=== PATIENT | female | born 1980 | race Caucasian/White ===

== ENCOUNTER 2021-11-02 01:46 | Emergency (ER) | payer BC, SELFPAY ==
[2021-11-02 02:02] VITALS: BP 130/85; PULSE 89; RESP 18; TEMP 36.6; BMI 24.1
--- NOTE | 2021-11-02 02:36 | ED.UPPEXIN ---
HPI - Extremity Injury (Upper) General Chief Complaint: Extremity Pain/Injury, Upper Stated Complaint: Right Shoulder Pain Time Seen by Provider: 11/02/21 02:16 Source: patient Mode of arrival: ambulatory Limitations: no limitations History of Present Illness HPI narrative: Patient presents with sudden onset of right shoulder pain radiating into the very anterior upper right chest approximately 1 hour ago. She has reported some mild vague shoulder discomfort for the last few months but no specific trauma nor injury. No weakness in the hands or arms, no neck pain. Her symptoms are not accompanied by any chest pain, cardiac symptoms, palpitations, exertional symptoms, dyspnea. There is no cough or fever or symptoms of illness. And states that the pain woke her from sleep. She did not try taking any Tylenol or ibuprofen. Pain is markedly worsened by attempting to move her shoulder and with deep breaths. No new activity, no new medications. No prior x-ray or investigation for this condition in the past. No prior physical therapy or prior primary care evaluation. Opposite shoulder and neck are unaffected. She has teenage children, no recent heavy lifting. Pain is sharp and piercing. Review of systems is negative for other musculoskeletal, cardiovascular, skin, respiratory or generalized complaints tonight. Related Data Previous Rx's Medication Instructions Recorded cyclobenzaprine 10 mg tablet 5 - 10 mg PO HS PRN muscle spasm 11/02/21 #10 tabs meloxicam 15 mg tablet 15 mg PO DAILY #20 tabs 11/02/21 PFSH PFSH Medical History Depression IUD (intrauterine device) in place Surgical History History of Exam Const: Vital Signs, click to edit/add: Vital Signs - 24 hr 11/02/21 02:02 Temperature 97.8 F Pulse Rate [Pulse Oximeter] 89 Respiratory Rate 18 Blood Pressure [Le ft Upper Arm] 130/85 Oxygen Delivery Me thod Room Air Documenting provider has reviewed patient's vital signs: yes Common normals: no apparent distress General appearance: cooperative Other: Excellent historian. HENMT: Common normals: normocephalic Head and scalp: normocephalic Eye: Common normals: conjunctivae normal and no scleral icterus Conjunctiva: conjunctiva(e) normal Other: Normal visual tracking Neck & C-Spine: Common normals: full ROM and no lymphadenopathy Chest: Common normals: inspection of chest normal and palpation of chest normal Resp: Common normals: normal respiratory effort, no use of accessory muscles and clear to auscultation bilaterally Auscultation: clear to auscultation bilaterally Cardio: Common normals: regular rate, regular rhythm, S1 normal heart sound, S2 normal heart sound, no murmurs and peripheral pulses 2+ throughout Rate: regular rate Rhythm: regular rhythm Heart sounds: S1 normal and S2 normal Peripheral pulses: pulses 2+ throughout Extremity: Other: Left shoulder with normal range of motion. Normal strength in left hand. No tenderness to left upper extremity, no movement deficits. Right shoulder is initially guarded at her side rotated internally slightly. She has normal range of motion at the wrist with no effusion, normal hand strength and movement of the fingers. The elbow extends without difficulty. She does have normal abduction and adduction of the arm. She has difficulty controlling the arm in adduction from about 30-0 degrees. She has marked tenderness to impingement testing normal passive range of motion without eliciting tenderness. Mild tenderness to palpation of the supraspinatus and AC joint no effusion, deformity. Neuro: Motor exam: no tremor noted and no movement abnormalities noted Psych: Common normals: speech normal Speech: normal speech Mood and affect: euthymic mood Insight: insight good Judgement: judgment good Skin: Common normals: no rashes or lesions noted General skin exam: no rashes or lesions noted Course Vital Signs Vital signs: Initial Vital Signs Temperature 97.8 F 11/02/21 02:02 Temperature Source Temporal Artery Scan 11/02/21 02:02 Pulse Rate 89 11/02/21 02:02 Respiratory Rate 18 11/02/21 02:02 Blood Pressure 130/85 11/02/21 02:02 Blood Pressure Mean 100 11/02/21 02:02 Blood Pressure Position Sitting 11/02/21 02:02 Oxygen Delivery Method 11/02/21 02:02 Vital Signs Temperature 97.8 F 11/02/21 02:02 Pulse Rate 89 11/02/21 02:02 Respiratory Rate 18 11/02/21 02:02 Blood Pressure 130/85 11/02/21 02:02 Oxygen Delivery Method 11/02/21 02:02 Temperature 97.8 F 11/02/21 02:02 Pulse Rate 89 11/02/21 02:02 Respiratory Rate 18 11/02/21 02:02 Blood Pressure 130/85 11/02/21 02:02 Oxygen Delivery Method 11/02/21 02:02 MDM - Extremity Injury (Upper) MDM Narrative Medical decision making narrative: Exam is very focal for right shoulder etiology. There are no signs of underlying cardiac, pulmonary, infectious or skin etiology. I discussed the risks and benefits of doing an additional cardiac or pulmonary workup and patient is in agreement that this is not likely to be helpful. I discussed how without any trauma or injury, an x-ray is not likely to be beneficial for initial management. She is agreeable to a trial of anti-inflammatory and muscle relaxants and re-evaluation for additional imaging or workup if her symptoms are unimproved. I do think she might benefit from physical therapy if she does not respond to anti-inflammatory therapy. She is agreeable to primary care followup to arrange this. She may also benefit from an injection if she does not respond to oral therapy. Assessed patient approximately 20, she responded well to the Toradol and Flexeril, has marked improvement in pain and improvement in range of motion. She still guards slightly with adduction but again, marked improvement. We further discussed the plan of care as documented below. Discharge Plan Discharge Clinical Impression: Disorder of right rotator cuff Patient Disposition: Home w/ Parent or Adult Condition: Improved Instructions: Rotator Cuff Tendinitis (ED), Rotator Cuff Injury Exercises (DC) Additional Instructions: I am sensing rotator cuff tendinitis as the etiology of your pain. I will start you on an anti-inflammatory medication called meloxicam, please take this with food to avoid stomach irritation. He may also use Tylenol. You would likely benefit from ice to the top and back part of the shoulder for 10-15 minutes every 3 hours while awake for the next 2 days. I have also given a prescription for muscle relaxant, I would recommend starting with a half of a pill because it may make you sleepy. So often, and this is only needed at night. It is okay to use a full pill but you do risk of drowsiness with this. I would like for you to follow-up with her primary care provider in about 3-5 days. If her symptoms are not improving, we should consider an x-ray, injection, physical therapy or a combination of these modalities. Come back to the emergency department if your symptoms become severe, if you have difficulty moving your hands or if you are having stroke-like symptoms. Mild Numbness and tingling can be common and is not necessarily a concern unless accompanied by other neurological changes. Activity Level: Activity as Tolerated and Other Activity Detail: No lifting more than 2 lb for the next 48 hours with right arm. Use the sling as needed with activity only. Do not sleep in the sling, removed the arm frequently to perform [id number] exercises about every 1-2 hours during the day. Try to wean out of the sling within 2-3 days. Discharge Diet: Regular Prescriptions: New meloxicam 15 mg tablet 15 mg PO DAILY Qty: 20 0RF Rx Instructions: Anti-inflammatory for shoulder pain cyclobenzaprine 10 mg tablet 5 - 10 mg PO HS PRN (Reason: muscle spasm) Qty: 10 0RF Follow Up/Referrals: Maru Renteria MD [Primary Care Provider] - 2 Days Stand Alone Forms: [facility] Info Instructions
[2021-11-02] MEDS: KETOROLAC 30 MG/ML inj IM (02:57)
[2021-11-02] MEDS: CYCLOBENZAPRINE HCL 10 MG TABLET 5 MG PO (02:58)
--- NOTE | 2021-11-02 03:15 | ED.NURSE ---
Pt refusing sling at this time. aware.
== END 2021-11-02 03:37 | disposition home or self-care (01) ==
PROVIDERS: Emergency Provider Family Medicine; PCP Family Medicine
DX: M25.511 Pain in right shoulder (principal)
CPT/HCPCS: 96372; 99282; A9270; J1885